=== PATIENT | female | born 2000 | race Hispanic/Latino ===

== ENCOUNTER 2019-12-18 07:41 | Emergency (ER) | payer BC ==
[~2019-12-18 07:41] MED LIST: TAM75CAP PO
[2019-12-18] MEDS ORDERED: ZPAK PO (09:09)
[2019-12-18 09:20] VITALS: BP 11/74
[2019-12-18] MEDS ORDERED: ONDANSETRON4 MG PO (09:28)
--- NOTE | 2019-12-20 16:46 | NUR ---
Notified patient of positive Covid results. Advised patient to quarantine until contacted by the [facility] with further instructions. Advised patient to return to ED with difficulty breathing or other urgent needs. Patient denies dyspnea. Patient c/o minor SOB with exertion. Advised patient if SOB increases she should come to [facility]. Patient verbalizes understanding.
== END 2019-12-18 09:20 | disposition home or self-care (01) | DRG 177 ==
LOC: ED 07:41
DX: U07.1 COVID-19 (principal); J12.89 Other viral pneumonia